=== PATIENT | female | born 1990 | race Caucasian/White ===

== ENCOUNTER 2018-06-27 18:36 | Emergency (ER) | payer MEDICAID ==
[~2018-06-27] VITALS: Ht 162.6 cm; Wt 52.6 kg
--- NOTE | 2018-06-27 19:11 | NUR ---
PT AMBULATED TO LOBBY WITH VSS.
[2018-06-27 19:13] VITALS: BP 134/87
--- NOTE | 2018-06-27 19:43 | NUR ---
Malik to [facility]
[2018-06-27] MEDS ORDERED: KETOROLAC 30 MG/ML VIAL IM ONE (20:25)
--- NOTE | 2018-06-27 21:20 | NUR ---
PT DENIES N/V/D; SKIN IS INTACT, PINK/WARM/DRY; AAOX4, PERRL, WITH EVEN AND STEADY GAIT; LUNGS CLEAR BL, BREATHING UNLABORED; HR EVEN AND REGULAR, BL PERIPHERAL PULSES PRESENT; BS ACTIVE X4, NO TENDERNESS TO PALPATION, NO HEPATOSPLENOMEGALLY PALPATED, RESONANT TO PERCUSSION; PT DENIES ANY FEVER, CP, SOB, OR COUGH AT THIS TIME; PT STATES 7/10 PAIN IN BILAT KNEES AT THIS TIME, DENIES INJURY; VSS; PATIENT POSITIONED FOR COMFORT; HOB ELEVATED.
[2018-06-27 21:28] VITALS: BP 125/78
== END 2018-06-27 21:28 | disposition home or self-care (01) ==
LOC: MED 18:36
DX: M25.561 Pain in right knee (principal); M25.562 Pain in left knee; Z88.5 Allergy status to narcotic agent
CPT/HCPCS: 73562; 81025; 96372; 99283; J1885

== ENCOUNTER 2019-02-01 16:01 | Emergency (ER) | payer MEDICAID ==
[~2019-02-01] VITALS: Ht 160 cm; Wt 51.5 kg
[2019-02-01 16:09] VITALS: BP 109/65
--- NOTE | 2019-02-01 16:18 | NUR ---
PT AMBULATED TO BED 05.
--- NOTE | 2019-02-01 16:28 | NUR ---
PT C/O CONSTANT SHARP RUQ ABDOMINAL PAIN RADIATING TO RIGHT MEDIAL BACK X 2 WEEKS. DENIES N/V/D AND CONSTIPATION. LBM THIS MORNING. LMP 6 MONTHS AGO DUE TO CONTROL. REYES'S SIGN NEGATIVE. TENDERNESS ON PALPATION ON RUQ ABDOMEN. PATIENT STATES PAIN OF 7/10 AT THIS TIME; VSS; PATIENT POSITIONED FOR COMFORT; HOB ELEVATED; BEDRAILS UP X1; BED DOWN. ER MD MADE AWARE OF PT STATUS.
[2019-02-01] MEDS ORDERED: KETOROLAC 30 MG/ML VIAL IM ONE (16:40)
[2019-02-01 17:06] LABS: APPEARANCE,URINE CLOUDY (CLEAR); BILIRUBIN,URINE NEGATIVE (NEGATIVE); BLOOD, URINE NEGATIVE (NEGATIVE); COLOR,URINE YELLOW (YELLOW); LEUKOCYTE ESTERASE ,URINE NEGATIVE (NEGATIVE); NITRITE, URINE NEGATIVE (NEGATIVE); PH,URINE 7.5 (5.0-9.0); UGLUCOSE NEGATIVE (NEGATIVE)
[2019-02-01 17:21] LABS: BASOPHILS % (AUTO) 0.3 % (0.0-2.0); EOSINOPHILS # (AUTO) 0.1 K/uL (0-0.4); EOSINOPHILS % (AUTO) 1.2 % (0.0-4.0); HEMOGLOBIN 14.4 g/dL (12.0-16.0); LYMPHOCYTES # (AUTO) 2.5 K/uL (2.5-16.5); LYMPHOCYTES % (AUTO) 28.8 % (20.5-51.1); MEAN CORPUSCULAR HEMOGLOBIN 30 pg (27-31); MEAN CORPUSCULAR HGB CONC 34 g/dL (33-37); MEAN CORPUSCULAR VOLUME 89.2 fL (80-94); MONOCYTES # (AUTO) 0.8 K/uL (0.8-1.0); MONOCYTES % (AUTO) 8.7 % (1.7-9.3); NEUTROPHILS # (AUTO) 5.4 K/uL (1.8-7.7); PLATELET COUNT (AUTO) 321 K/uL (140-450); RED BLOOD CELL COUNT(AUTO) 4.82 MIL/uL (4.20-5.40); RED CELL DISTRIBUTION WIDTH 12.9 % (11.6-13.7); WHITE BLOOD COUNT (AUTO) 8.8 K/uL (4.8-10.8)
[2019-02-01 17:22] LABS: RBC,URINE 0-5 /HPF (0-5)
[2019-02-01 17:33] LABS: ANION GAP 15.6 (8-16); CARBON DIOXIDE 24.1 mmol/L (21-32); CREATININE 1.1 mg/dL (0.6-1.3); POTASSIUM 3.7 mmol/L (3.5-5.1)
[2019-02-01 17:39] LABS: ALBUMIN 4.2 g/dL (3.4-5.0); TOTAL BILIRUBIN 0.3 mg/dL (0.0-1.0)
[2019-02-01 17:57] VITALS: BP 110/62
--- NOTE | 2019-02-01 17:57 | NUR ---
Patient discharged with v/s stable. Written and verbal after care instructions given and explained. Patient alert, oriented and verbalized understanding of instructions. Ambulatory with steady gait. All questions addressed prior to discharge. ID band removed. Patient advised to follow up with PMD. Rx of NORCO, IBUPROFEN given. Patient educated on indication of medication including possible reaction and side effects. Opportunity to ask questions provided and answered.
== END 2019-02-01 17:57 | disposition home or self-care (01) ==
LOC: MED 16:01
DX: K80.20 Calculus of gallbladder without cholecystitis without obstruction (principal); Z88.5 Allergy status to narcotic agent
CPT/HCPCS: 36415; 76705; 80053; 81001; 81025; 83690; 85025; 87086; 96372; 99284; J1885; Q0092

== ENCOUNTER 2021-01-12 18:19 | Emergency (ER) | payer MEDICAID ==
[~2021-01-12] VITALS: Ht 165.1 cm; Wt 56.7 kg
[2021-01-12 18:33] VITALS: BP 145/88
--- NOTE | 2021-01-12 18:39 | NUR ---
PT SENT TO LOBBY
--- NOTE | 2021-01-12 19:00 | NUR ---
30/F PRESENTS TO ED WITH C/O LOWER ABDOMINAL PAIN SINCE TUESDAY. STATES SHE SNEEZED AND FELT "SOMETHING POP" AND THE PAIN HAS CONTINUED SINCE. STATES ABDOMEN IS SLIGHTLY TENDER TO TOUCH, PAIN IS NONRADIATING, REPORTS 7/10 SHARP PAIN THAT WORSENS WITH EXCESSIVE MOVEMENT. REPORTS TAKING TYLENOL WITH MILD RELIEF. DENIES NAUSEA, VOMITING, DIARRHEA, URINARY SYMPTOMS, CP OR SOB.
[2021-01-12 19:29] LABS: BASOPHILS % (AUTO) 0.3 % (0.0-2.0); EOSINOPHILS # (AUTO) 0.2 K/uL (0-0.4); EOSINOPHILS % (AUTO) 1.9 % (0.0-4.0); HEMATOCRIT 40.6 % (36-48); HEMOGLOBIN 13.8 g/dL (12.0-16.0); LYMPHOCYTES % (AUTO) 32.9 % (20.5-51.1); MEAN CORPUSCULAR HEMOGLOBIN 30 pg (27-31); MEAN CORPUSCULAR HGB CONC 34 g/dL (33-37); MEAN CORPUSCULAR VOLUME 89.4 fL (80-94); MONOCYTES # (AUTO) 0.9 K/uL (0.8-1.0); MONOCYTES % (AUTO) 9.7 % (1.7-9.3); NEUTROPHILS % (AUTO) 55.2 % (42.2-75.2); PLATELET COUNT (AUTO) 313 K/uL (140-450); RED BLOOD CELL COUNT(AUTO) 4.55 MIL/uL (4.20-5.40); RED CELL DISTRIBUTION WIDTH 12.8 % (11.6-13.7); WHITE BLOOD COUNT (AUTO) 9.1 K/uL (4.8-10.8)
[2021-01-12] MEDS ORDERED: KETOROLAC 30 MG/ML VIAL IM ONE (20:00)
[2021-01-12 20:03] LABS: ALBUMIN 3.9 g/dL (3.4-5.0); ANION GAP 11.8 (8-16); CREATININE 0.8 mg/dL (0.6-1.3); POTASSIUM 3.8 mmol/L (3.5-5.1); TOTAL BILIRUBIN 0.2 mg/dL (0.0-1.0)
[2021-01-12 21:32] LABS: APPEARANCE,URINE SL CLOUDY (CLEAR); BILIRUBIN,URINE NEGATIVE (NEGATIVE); BLOOD, URINE NEGATIVE (NEGATIVE); COLOR,URINE YELLOW (YELLOW); LEUKOCYTE ESTERASE ,URINE NEGATIVE (NEGATIVE); NITRITE, URINE NEGATIVE (NEGATIVE); PH,URINE 7.5 (5.0-9.0); UGLUCOSE NEGATIVE (NEGATIVE)
--- NOTE | 2021-01-12 22:30 | NUR ---
PT CALLED IN LOBBY AND OUTSIDE 3x WITH NO ANSWER. PATIENT ELOPED FROM FACILITY. DISCHARGE INSTRUCTIONS NOT GIVEN TO PATIENT. DR. DUKE NOTIFIED.
== END 2021-01-12 22:30 | disposition left against medical advice (07) ==
LOC: MED 18:19
DX: R10.30 Lower abdominal pain, unspecified (principal); R51.9 Headache, unspecified
CPT/HCPCS: 36415; 80053; 81003; 81025; 85025; 96372; 99283; J1885

== ENCOUNTER 2021-04-09 23:40 | Emergency (ER) | payer MEDICAID ==
[~2021-04-09] VITALS: Ht 160 cm; Wt 63.5 kg
[2021-04-09 23:55] VITALS: BP 111/69
--- NOTE | 2021-04-10 01:02 | NUR ---
CALLED BY DR WEST, NO ANSWER. PT NO LONGER IN WAITING ROOM. LWBS
== END 2021-04-10 01:05 | disposition left against medical advice (07) ==
LOC: MED 23:40
DX: R10.9 Unspecified abdominal pain (principal); R11.10 Vomiting, unspecified; R19.7 Diarrhea, unspecified; Z53.21 Procedure and treatment not carried out due to patient leaving prior to being seen by health care provider

== ENCOUNTER 2022-05-19 10:38 | Emergency (ER) | payer MEDICAID ==
[~2022-05-19] VITALS: Ht 160 cm; Wt 78.9 kg
[2022-05-19 10:48] VITALS: BP 95/60
--- NOTE | 2022-05-19 10:48 | NUR ---
PT WC ASSISTED TO BED 11
[2022-05-19 12:31] LABS: APPEARANCE,URINE CLEAR (CLEAR); BILIRUBIN,URINE NEGATIVE (NEGATIVE); BLOOD, URINE NEGATIVE (NEGATIVE); COLOR,URINE YELLOW (YELLOW); LEUKOCYTE ESTERASE ,URINE NEGATIVE (NEGATIVE); NITRITE, URINE NEGATIVE (NEGATIVE); UGLUCOSE NEGATIVE (NEGATIVE)
[2022-05-19 13:08] LABS: BASOPHILS % (AUTO) 0.4 % (0.0-2.0); EOSINOPHILS # (AUTO) 0.1 K/uL (0-0.4); HEMATOCRIT 33.6 % (36-48); HEMOGLOBIN 11.6 g/dL (12.0-16.0); LYMPHOCYTES # (AUTO) 2.5 K/uL (2.5-16.5); LYMPHOCYTES % (AUTO) 23.2 % (20.5-51.1); MEAN CORPUSCULAR HEMOGLOBIN 30 pg (27-31); MEAN CORPUSCULAR HGB CONC 35 g/dL (33-37); MEAN CORPUSCULAR VOLUME 87.9 fL (80-94); MONOCYTES # (AUTO) 0.8 K/uL (0.8-1.0); MONOCYTES % (AUTO) 7.8 % (1.7-9.3); NEUTROPHILS # (AUTO) 7.2 K/uL (1.8-7.7); NEUTROPHILS % (AUTO) 67.6 % (42.2-75.2); PLATELET COUNT (AUTO) 320 K/uL (140-450); RED BLOOD CELL COUNT(AUTO) 3.82 MIL/uL (4.20-5.40); RED CELL DISTRIBUTION WIDTH 13.1 % (11.6-13.7); WHITE BLOOD COUNT (AUTO) 10.6 K/uL (4.8-10.8)
[2022-05-19 13:44] LABS: ALBUMIN 3.5 g/dL (3.4-5.0); ANION GAP 12.3 (8-16); CARBON DIOXIDE 23.2 mmol/L (21-32); CREATININE 0.5 mg/dL (0.6-1.3); POTASSIUM 3.5 mmol/L (3.5-5.1)
[2022-05-19] MEDS ORDERED: ACETAMINOPHEN EXTRA STRENGTH 500 MG TAB PO ONE (13:45)
[2022-05-19] MEDS ORDERED: PRETAB PO (13:50)
[2022-05-19] MEDS ORDERED: ACET-10509 PO (13:50)
[2022-05-19 13:53] LABS: TOTAL BILIRUBIN 0.2 mg/dL (0.0-1.0)
[2022-05-19 14:07] VITALS: BP 102/63
--- NOTE | 2022-05-19 14:08 | NUR ---
Patient discharged with v/s stable. Written and verbal after care instructions given and explained. Patient verbalized understanding. Ambulatory with steady gait. All questions addressed prior to discharge. Advised to follow up with PMD.
== END 2022-05-19 14:06 | disposition home or self-care (01) ==
LOC: MED 10:38
DX: O26.892 Other specified pregnancy related conditions, second trimester (principal); R10.2 Pelvic and perineal pain; Z88.5 Allergy status to narcotic agent; Z3A.16 16 weeks gestation of pregnancy
CPT/HCPCS: 36415; 76817; 80053; 81003; 81025; 84702; 85025; 99284; Q0092

== ENCOUNTER 2022-07-10 14:00 | Observation (INO) | payer MEDICAID ==
[~2022-07-10] VITALS: Ht 160 cm; Wt 64.4 kg
[~2022-07-10 14:00] MED LIST: ACET-10509 PO; PRETAB PO
[2022-07-10 14:30] VITALS: BP 115/58
[2022-07-10] MEDS ORDERED: ONDANSETRON 4 MG TAB PO STA (15:57)
[2022-07-10] MEDS ORDERED: FERR-212 PO (16:55)
[2022-07-10] MEDS ORDERED: CALCIUM (16:55)
== END 2022-07-10 17:45 | disposition home or self-care (01) ==
LOC: MLD 14:00
PROVIDERS: ADMIT Obstetrics & Gynecology; ATTEND Obstetrics & Gynecology
DX: O21.2 Late vomiting of pregnancy (principal); Z20.822 Contact with and (suspected) exposure to COVID-19; O26.892 Other specified pregnancy related conditions, second trimester; R10.31 Right lower quadrant pain; Z3A.24 24 weeks gestation of pregnancy
CPT/HCPCS: 87426; G0378; Q0162

== ENCOUNTER 2023-07-05 11:13 | Emergency (ER) | payer MEDICAID ==
[~2023-07-05] VITALS: Ht 160 cm; Wt 63.0 kg
[~2023-07-05 11:13] MED LIST changes: -ACET-10509 PO; +CALCIUM; +FERR-212 PO
[2023-07-05 11:26] VITALS: BP 110/66; PULSE 68; RESP 16; TEMP 98.6; O2SAT 99
[2023-07-05 13:29] LABS: BASOPHILS % (AUTO) 0.3 % (0.0-2.0); EOSINOPHILS # (AUTO) 0.1 K/uL (0-0.4); EOSINOPHILS % (AUTO) 1.8 % (0.0-4.0); HEMATOCRIT 37.1 % (36-48); HEMOGLOBIN 12.8 g/dL (12.0-16.0); LYMPHOCYTES # (AUTO) 1.9 K/uL (2.5-16.5); LYMPHOCYTES % (AUTO) 21.8 % (20.5-51.1); MEAN CORPUSCULAR HEMOGLOBIN 29 pg (27-31); MEAN CORPUSCULAR HGB CONC 35 g/dL (33-37); MEAN CORPUSCULAR VOLUME 84.5 fL (80-94); MONOCYTES # (AUTO) 0.6 K/uL (0.8-1.0); MONOCYTES % (AUTO) 7.5 % (1.7-9.3); NEUTROPHILS # (AUTO) 5.8 K/uL (1.8-7.7); NEUTROPHILS % (AUTO) 68.6 % (42.2-75.2); PLATELET COUNT (AUTO) 301 K/uL (140-450); RED BLOOD CELL COUNT(AUTO) 4.39 MIL/uL (4.20-5.40); RED CELL DISTRIBUTION WIDTH 13.5 % (11.6-13.7); WHITE BLOOD COUNT (AUTO) 8.5 K/uL (4.8-10.8)
[2023-07-05 13:38] LABS: APPEARANCE,URINE CLEAR (CLEAR); BILIRUBIN,URINE NEGATIVE (NEGATIVE); BLOOD, URINE NEGATIVE (NEGATIVE); COLOR,URINE YELLOW (YELLOW); LEUKOCYTE ESTERASE ,URINE NEGATIVE (NEGATIVE); NITRITE, URINE NEGATIVE (NEGATIVE); PROTEIN,URINE NEGATIVE (NEGATIVE); UGLUCOSE NEGATIVE (NEGATIVE); UROBILINOGEN,URINE 0.2 EU/dL (0.2 - 1)
[2023-07-05 15:17] VITALS: BP 109/60; PULSE 80; RESP 18; TEMP 98.3; O2SAT 97
== END 2023-07-05 15:21 | disposition home or self-care (01) ==
LOC: MED 11:13
DX: O20.0 Threatened abortion (principal); Z3A.10 10 weeks gestation of pregnancy; Z88.5 Allergy status to narcotic agent; Z79.899 Other long term (current) drug therapy; Z90.49 Acquired absence of other specified parts of digestive tract
CPT/HCPCS: 36415; 76801; 81003; 81025; 84702; 85025; 86900; 86901; 99284; Q0092